=== PATIENT | female | born 1980 | race Caucasian/White ===

== ENCOUNTER 2019-04-17 11:18 | Emergency (ER) | payer MEDICAID ==
--- OUTSIDE RECORDS SUMMARY | 2019-04-17 11:32 | XMS REPORT | Continuity of Care Document ---
:1980 External Reference #:[id number] Author Name Ulysses Bautista MD (transmitted by agent of provider Francine Echeverria) Address [address] [place] [id number] Problems Inactive Problems Provider Date Verruca plantaris Onset: 11/18/2018 Inactive: 11/18/2018 Urgent desire to urinate Onset: 11/18/2018 Inactive: 11/18/2018 Urinary tract infectious disease Onset: 11/18/2018 Inactive: 11/18/2018 Social History Type Date Description Comments Sex Unknown Allergies, Adverse Reactions, Alerts Description No Known Drug Allergies Medications Active Medications SIG Qnty Indications Ordering Provider Date Cephalexin 1 tab by mouth 20caps Ulysses Bautista MD 04/16/2019 500mg Capsules twice a day History Medications No Active Medications Unknown 04/16/2019 - 04/16/2019 Wellbutrin XL 1 daily Oral 30tabs ANTONIO Noel 01/12/2019 - 150mg 03/22/2019 Tablets ER 24HR Fluoxetine HCL 1 tab daily 30caps F41.9 ANTONIO Noel 01/11/2019 - 10mg 03/23/2019 Capsules Hydroxyzine HCL 1-2 as needed 60tabs F41.9 ANTONIO Noel 01/11/2019 - 50mg every 6 hrs for 03/23/2019 Tablets anxiety Macrobid 1 twice daily 10caps Unknown 11/18/2018 - 100mg Capsules Oral 11/23/2018 Pyridium 1 three times 6tabs Unknown 11/18/2018 - 200mg Tablets daily Oral 11/20/2018 Immunizations CPT Code Status Date Vaccine Lot # [id number] Given 02/26/2019 Flu < 65 years [id number] 22076 Given 06/23/2015 Influenza Virus Vaccine, Quadrivalent, Split, Im Use 0.25ML 78367 Given 06/23/2015 Flu High Dose 75283 Given 06/23/2015 Flumist 55760 Given 06/23/2015 Influenza Virus Vaccine, Quadrivalent, Split, Im Use 0.25ML 20444 Given 06/23/2015 Influenza Virus Vaccine, Quadrivalent, Split, Im Use 0.25ML 20432 Given 06/23/2015 Influenza Virus Vaccine, Quadrivalent, Split, Preservative Free 80963 Given 06/23/2015 Flu < 65 years 65309 Given 03/14/2014 Flu High Dose 50564 Given 03/14/2014 Flumist 83133 Given 03/14/2014 Influenza Virus Vaccine, Quadrivalent, Split, Preservative Free 68644 Given 03/14/2014 Flu < 65 years 03541 Given 03/14/2014 Influenza Virus Vaccine, Quadrivalent, Split Virus, Im Use 0.5ML 17693 Given 01/14/2013 Influenza Virus Vaccine, Quadrivalent, Split, Im Use 0.25ML 41144 Given 01/14/2013 Influenza Virus Vaccine, Quadrivalent, Split, Im Use 0.25ML 79590 Given 01/14/2013 Influenza Virus Vaccine, Quadrivalent, Split, Im Use 0.25ML 28455 Given 01/14/2013 Influenza Virus Vaccine, Quadrivalent, Split, Im Use 0.25ML 21118 Given 01/14/2013 Flu < 65 years 38820 Given 01/14/2013 Influenza Virus Vaccine, Quadrivalent, Split, Preservative Free 20997 Given 01/14/2013 Flumist 23061 Given 01/14/2013 Flu High Dose 24026 Given 01/14/2013 Influenza Virus Vaccine Split Virus Intramuscular Use 0.5ML 99551 Given 12/12/2011 Tdap - Boostrix/Adacel 19879 Given 03/24/2009 Influenza Virus Vaccine, Quadrivalent, Split, Im Use 0.25ML 72832 Given 03/24/2009 H1N1 Immunization Admin (Intramuscular,Intranasal) Inc Counseling [id number] Refused 09/09/2017 Influenza Virus Vaccine, Quadrivalent, Split, Im Use 0.25ML Vital Signs Date Vital Result Comment 04/16/2019 12:03pm Height 65 inches 5'5" Weight 153.00 lb Heart Rate 95 /min Body Temperature 100.1 F O2 % BldC Oximetry 99 % BMI (Body Mass Index) 25.5 kg/m2 Results Test Acquired Date Facility Test Result H/L Range Note CFM Rapid Flu 04/16/2019 [facility] Influenza A Rapid Pos A & B ( )- - Test Influenza B Rapid Test Neg Laboratory test 04/16/2019 [facility] Rapid Strep A Positive finding ( )- - Laboratory test 02/26/2019 [facility] CFM Rapid Strep A neg finding ( )- - CFM Rapid Flu A & B 02/26/2019 [facility] Influenza A Rapid neg ( )- - Test Influenza B Rapid Test neg Laboratory test 02/26/2019 [facility] Rapid Strep Negative Negative [address] A Request [place] [id number] [phone] Laboratory test 02/26/2019 [facility] CF Rapid negative finding ( )- - Strep A Bilirubin-Ua 11/18/2018 N2N/CCD Import Bilirubin-U Negative Negative - a Negative Qual Blood-Ua 11/18/2018 N2N/CCD Import Blood-Ua Negative Negative - Negative Qual Glucose-Ua 11/18/2018 N2N/CCD Import Glucose-Ua Negative Negative - Negative Qual Ketones-Ua 11/18/2018 N2N/CCD Import Ketones-Ua Negative Negative - Negative Qual Leuk Est-Ua 11/18/2018 N2N/CCD Import Leuk Est-Ua TR High Negative - Negative Qual Nitrite-Ua 11/18/2018 N2N/CCD Import Nitrite-Ua Negative Negative - Negative Qual PH-Ua 11/18/2018 N2N/CCD Import PH-Ua 7.0 _ 5 - 7 Protein-Ua 11/18/2018 N2N/CCD Import Protein-Ua Negative SP Grav-Ua 11/18/2018 N2N/CCD Import SP Grav-Ua 1.010 _ 1.003 - 1.030 Urobilinogen-Ua 11/18/2018 N2N/CCD Import Urobilinoge neg Negative - n-Ua Negative 1 Corporate Recruiter: [id number] Suboptimal collection technique may reduce sensitivity of test. Refer to the [facility] Test Catalog for collection information: [email or web address] As with all diagnostic procedures, the laboratory results obtained should be used in conjunction with other clinical information available to the physician, including confirmation by another method, as applicable. Procedures Date Code Description Status 04/16/2019 59303 Brief Emotional/Behav Assessment W/ Scoring Doc Per Completed Standard Inst 11/18/2018 22181 Destruction Benign Lesions Other Than Skin Tags Or Cutan Completed Vascular Medical Devices Description No Information Available Encounters Type Date Location Provider Dx Diagnosis Office Visit 02/26/2019 [facility] Tish Norman, R68.83 Chills ( without 11:00a fever) J02.9 Acute pharyngitis, unspecified Z63.79 Other stressful life events affecting family and household Z23 Encounter for immunization Office Visit 01/11/2019 1:45p [facility] Lidia Joytama, HEALTH INSURANCE AGENT F41.9 Anxiety disorder, unspecified Z63.79 Other stressful life events affecting family and household Assessments Date Code Description Provider 04/16/2019 J02.9 Acute pharyngitis, unspecified Ulysses Bautista MD 04/16/2019 R50.9 Fever, unspecified Ulysses Bautista MD 02/26/2019 R68.83 Chills (without fever) Tish Norman, 02/26/2019 J02.9 Acute pharyngitis, unspecified Tish Norman, DO 02/26/2019 Z63.79 Other stressful life events affecting family Tish Norman, and household 02/26/2019 Z23 Encounter for immunization Tish Norman, 01/11/2019 F41.9 Anxiety disorder, unspecified Lidia Joytama, HEALTH INSURANCE AGENT 01/11/2019 Z63.79 Other stressful life events affecting family Lidia Aittama, HEALTH INSURANCE AGENT and household Plan of Treatment 04/16/2019 - Ulysses Bautista MDJ02.9 Acute pharyngitis, begldlsonnyL76.9 Fever, unspecifiedAllNew Medication:Cephalexin 500 mg - 1 tab by mouth twice a dayNo Active Medications - Functional Status Description No Information Available Mental Status Description No Information Available Referrals Description No Information Available
--- OUTSIDE RECORDS SUMMARY | 2019-04-17 11:32 | XMS REPORT | Continuity of Care Document ---
:1980 External Reference #:[id number] Author Name Tish Norman, DO Address [address] [place] [id number] Problems Inactive Problems Provider Date Verruca plantaris Onset: 11/18/2018 Inactive: 11/18/2018 Urgent desire to urinate Onset: 11/18/2018 Inactive: 11/18/2018 Urinary tract infectious disease Onset: 11/18/2018 Inactive: 11/18/2018 Social History Type Date Description Comments Sex Unknown Allergies, Adverse Reactions, Alerts Description No Information Available Medications Active Medications SIG Qnty Indications Ordering Provider Date Wellbutrin XL 1 daily Oral 30tabs Lidia Kim [facility] 01/12/2019 150mg Tablets ER 24HR Fluoxetine HCL 1 tab daily 30caps F41.9 Lidia Aittama [facility] 01/11/2019 10mg Capsules Hydroxyzine HCL 1-2 as needed 60tabs F41.9 Lidia Joytama, [facility] 01/11/2019 50mg every 6 hrs for Tablets anxiety Xanax 1 three times 20tabs Unknown 03/12/2013 0.25mg Tablets daily prn Oral History Medications Macrobid 1 twice daily Oral 10caps Unknown 11/18/2018 - 11/23/2018 100mg Capsules Pyridium 1 three times daily 6tabs Unknown 11/18/2018 - 11/20/2018 200mg Tablets Oral Immunizations CPT Code Status Date Vaccine Lot # [id number] Given 02/26/2019 Flu < 65 years [id number] 33573 Given 06/23/2015 Influenza Virus Vaccine, Quadrivalent, Split, Im Use 0.25ML 62127 Given 06/23/2015 Flu High Dose 52133 Given 06/23/2015 Flumist 61663 Given 06/23/2015 Influenza Virus Vaccine, Quadrivalent, Split, Im Use 0.25ML 53233 Given 06/23/2015 Influenza Virus Vaccine, Quadrivalent, Split, Im Use 0.25ML 74200 Given 06/23/2015 Influenza Virus Vaccine, Quadrivalent, Split, Preservative Free 97214 Given 06/23/2015 Flu < 65 years 42692 Given 03/14/2014 Flu High Dose 29415 Given 03/14/2014 Flumist 55052 Given 03/14/2014 Influenza Virus Vaccine, Quadrivalent, Split, Preservative Free 96656 Given 03/14/2014 Flu < 65 years 95680 Given 03/14/2014 Influenza Virus Vaccine, Quadrivalent, Split Virus, Im Use 0.5ML 53369 Given 01/14/2013 Influenza Virus Vaccine, Quadrivalent, Split, Im Use 0.25ML 50943 Given 01/14/2013 Influenza Virus Vaccine, Quadrivalent, Split, Im Use 0.25ML 35929 Given 01/14/2013 Influenza Virus Vaccine, Quadrivalent, Split, Im Use 0.25ML 91093 Given 01/14/2013 Influenza Virus Vaccine, Quadrivalent, Split, Im Use 0.25ML 56684 Given 01/14/2013 Flu < 65 years 16792 Given 01/14/2013 Influenza Virus Vaccine, Quadrivalent, Split, Preservative Free 54812 Given 01/14/2013 Flumist 84090 Given 01/14/2013 Flu High Dose 81437 Given 01/14/2013 Influenza Virus Vaccine Split Virus Intramuscular Use 0.5ML 56593 Given 12/12/2011 Tdap - Boostrix/Adacel 40958 Given 03/24/2009 Influenza Virus Vaccine, Quadrivalent, Split, Im Use 0.25ML 08067 Given 03/24/2009 H1N1 Immunization Admin (Intramuscular,Intranasal) Inc Counseling 09545 Refused 09/09/2017 Influenza Virus Vaccine, Quadrivalent, Split, Im Use 0.25ML Vital Signs Date Vital Result Comment 02/26/2019 10:55am BP Systolic 104 mmHg BP Diastolic 74 mmHg Heart Rate 88 /min Body Temperature 98.5 F O2 % BldC Oximetry 98 % 01/11/2019 1:51pm BP Systolic 122 mmHg BP Diastolic 60 mmHg Heart Rate 68 /min Body Temperature 98.0 F O2 % BldC Oximetry 99 % Results Test Acquired Date Facility Test Result H/L Range Note Laboratory test 02/26/2019 [facility] CF Rapid Strep neg finding ( )- - A CFM Rapid Flu A & 02/26/2019 [facility] Influenza A neg B ( )- - Rapid Test Influenza B Rapid Test neg Laboratory test 02/26/2019 [facility] Rapid Strep Negative Negative [address] [place] [address] [phone] Laboratory test 02/26/2019 [facility] CF Rapid negative finding ( )- - [...] Urobilinoge neg Negative - n-Ua Negative 1 Tree Shear Operator: [id number] Suboptimal collection technique may reduce sensitivity of test. Refer to the [facility] Test Catalog for collection information: [email or web address] As with all diagnostic procedures, the laboratory results obtained should be used in conjunction with other clinical information available to the physician, including confirmation by another method, as applicable. Procedures Date Code Description Status 11/18/2018 14861 Destruction Benign Lesions Other Than Skin Tags Or Cutan Completed Vascular 09/09/2018 86297 Destruction Benign Lesions Other Than Skin Tags Or Cutan Completed Vascular Medical Devices Description No Information Available Encounters Type Date Location Provider Dx Diagnosis Office Visit 02/26/2019 [facility] Lauri Norman DO R68.83 Chills ( without 11:00a fever) J02.9 Acute pharyngitis, unspecified Z63.79 Other stressful life events affecting family and household Office Visit 01/11/2019 1:45p [facility] Lidia Kim UPSCALE SECURITY OFFICER F41.9 Anxiety disorder, unspecified Z63.79 Other stressful life events affecting family and household Assessments Date Code Description Provider 02/26/2019 R68.83 Chills (without fever) Tish Norman, DO 02/26/2019 J02.9 Acute pharyngitis, unspecified Tish Norman, DO 02/26/2019 Z63.79 Other stressful life events affecting family Tish Norman, DO and household 01/11/2019 F41.9 Anxiety disorder, unspecified Lidia Joyjuanbao, UPSCALE SECURITY OFFICER 01/11/2019 Z63.79 Other stressful life events affecting family Lidia Hamiltonjuanbao, UPSCALE SECURITY OFFICER and household Plan of Treatment 02/26/2019 - Tish Norman, DOR68.83 Chills (without fever)Comments:Flu swab negRapid strep neg but given constillation of symptoms and exposure, did send for cultureSuspect viral illnessDiscussed supportive careOk to wait until Friday to go back to work If things change, worsen or new symptoms, let me knowJ02.9 Acute pharyngitis, unspecifiedComments:Minimal sore throat but given symptoms and exposure, rapid strep doneZ63.79 Other stressful life events affecting family and householdComments:Supportive sheilaShe is doing well overallFinding who is supportive and who is notDoing her best with self careHere is she needs us Functional Status Description No Information Available Mental Status Description No Information Available Referrals Description No Information Available
--- OUTSIDE RECORDS SUMMARY | 2019-04-17 11:32 | XMS REPORT | Continuity of Care Document ---
:1980 External Reference #:[id number] Author Name Tish Norman, DO Address [address] [place] [id number] Problems Inactive Problems Provider Date Verruca plantaris Onset: 11/18/2018 Inactive: 11/18/2018 Urgent desire to urinate Onset: 11/18/2018 Inactive: 11/18/2018 Urinary tract infectious disease Onset: 11/18/2018 Inactive: 11/18/2018 Social History Type Date Description Comments Sex Unknown Allergies, Adverse Reactions, Alerts Description No Information Available Medications Active Medications SIG Qnty Indications Ordering Provider Date Wellbutrin XL 1 daily Oral 30tabs Lidia Kim [facility] 01/12/2019 150mg Tablets ER 24HR Fluoxetine HCL 1 tab daily 30caps F41.9 Lidia Aittama [facility] 01/11/2019 10mg Capsules Hydroxyzine HCL 1-2 as needed 60tabs F41.9 Lidia Joytama, [facility] 01/11/2019 50mg every 6 hrs for Tablets anxiety Xanax 1 three times 20tabs Unknown 03/12/2013 0.25mg Tablets daily prn Oral History Medications Macrobid 1 twice daily Oral 10caps Unknown 11/18/2018 - 11/23/2018 100mg Capsules Pyridium 1 three times daily 6tabs Unknown 11/18/2018 - 11/20/2018 200mg Tablets Oral Immunizations CPT Code Status Date Vaccine Lot # [id number] Given 02/26/2019 Flu < 65 years [id number] 51704 Given 06/23/2015 Influenza Virus Vaccine, Quadrivalent, Split, Im Use 0.25ML 96631 Given 06/23/2015 Flu High Dose 18426 Given 06/23/2015 Flumist 11786 Given 06/23/2015 Influenza Virus Vaccine, Quadrivalent, Split, Im Use 0.25ML 03235 Given 06/23/2015 Influenza Virus Vaccine, Quadrivalent, Split, Im Use 0.25ML 34033 Given 06/23/2015 Influenza Virus Vaccine, Quadrivalent, Split, Preservative Free 15011 Given 06/23/2015 Flu < 65 years 15281 Given 03/14/2014 Flu High Dose 09677 Given 03/14/2014 Flumist 43696 Given 03/14/2014 Influenza Virus Vaccine, Quadrivalent, Split, Preservative Free 35297 Given 03/14/2014 Flu < 65 years 62104 Given 03/14/2014 Influenza Virus Vaccine, Quadrivalent, Split Virus, Im Use 0.5ML 46187 Given 01/14/2013 Influenza Virus Vaccine, Quadrivalent, Split, Im Use 0.25ML 97167 Given 01/14/2013 Influenza Virus Vaccine, Quadrivalent, Split, Im Use 0.25ML 07880 Given 01/14/2013 Influenza Virus Vaccine, Quadrivalent, Split, Im Use 0.25ML 42397 Given 01/14/2013 Influenza Virus Vaccine, Quadrivalent, Split, Im Use 0.25ML 32770 Given 01/14/2013 Flu < 65 years 72136 Given 01/14/2013 Influenza Virus Vaccine, Quadrivalent, Split, Preservative Free 01976 Given 01/14/2013 Flumist 81392 Given 01/14/2013 Flu High Dose 79999 Given 01/14/2013 Influenza Virus Vaccine Split Virus Intramuscular Use 0.5ML 09269 Given 12/12/2011 Tdap - Boostrix/Adacel 61013 Given 03/24/2009 Influenza Virus Vaccine, Quadrivalent, Split, Im Use 0.25ML 42787 Given 03/24/2009 H1N1 Immunization Admin (Intramuscular,Intranasal) Inc Counseling 79009 Refused 09/09/2017 Influenza Virus Vaccine, Quadrivalent, Split, [...] Result H/L Range Note Laboratory test 02/26/2019 [facility] CF Rapid Strep neg finding ( )- - A CFM Rapid Flu A & 02/26/2019 [facility] Influenza A neg B ( )- - Rapid Test Influenza B Rapid Test neg Laboratory test 02/26/2019 [facility] Rapid Strep Negative Negative [address] [place] [address] [phone] Laboratory test 02/26/2019 [facility] CF Rapid negative finding ( )- - [...] Urobilinoge neg Negative - n-Ua Negative 1 Handle Maker: [id number] Suboptimal collection technique may reduce sensitivity of test. Refer to the [facility] Test Catalog for collection information: [email or web address] As with all diagnostic procedures, the laboratory results obtained should be used in conjunction with other clinical information available to the physician, including confirmation by another method, as applicable. Procedures Date Code Description Status 11/18/2018 78397 Destruction Benign Lesions Other Than Skin Tags Or Cutan Completed Vascular 09/09/2018 43182 Destruction Benign Lesions Other Than Skin Tags Or Cutan Completed Vascular Medical Devices Description No Information Available Encounters Type Date Location Provider Dx Diagnosis Office Visit 02/26/2019 [facility] Lauri Norman DO R68.83 Chills ( without 11:00a fever) J02.9 Acute pharyngitis, unspecified Z63.79 Other stressful life events affecting family and household Office Visit 01/11/2019 1:45p [facility] Lidia Kim ANTONIO F41.9 Anxiety disorder, unspecified Z63.79 Other stressful life events affecting family and household Assessments Date Code Description Provider 02/26/2019 R68.83 Chills (without fever) Tish Norman, DO 02/26/2019 J02.9 Acute pharyngitis, unspecified Tish Norman, DO 02/26/2019 Z63.79 Other stressful life events affecting family Tish Norman, DO and household 01/11/2019 F41.9 Anxiety disorder, unspecified Lidia Joyjuanbao, COUNTERINTELLIGENCE ANALYST 01/11/2019 Z63.79 Other stressful life events affecting family Lidia Hamiltonjuanbao, COUNTERINTELLIGENCE ANALYST and household Plan of Treatment 02/26/2019 - [...]
[2019-04-17] MEDS ORDERED: cefTRIAXone(*) 2 GM in NS 0.9% 100 ML* 100 ML IV ONE (12:12)
[2019-04-17] MEDS ORDERED: NS 0.9% 1000 ML** 1,000 ML IV ONE (12:17)
[2019-04-17] MEDS ORDERED: NS 0.9% 100 ML* 100 ML ONE (12:39)
[2019-04-17 12:40] LABS: ABS Eosinophils 0.1 10^3/ul (0-0.6); ABS Lymphocytes 0.9 10^3/ul (1.0-4.8); ABS Monocytes 0.8 10^3/ul (0-0.8); ABS Neutrophils 4.8 10^3/ul (1.5-7.7); Eosinophil % 1.1 %; Hematocrit 37 % (35-47); Hemoglobin 12.8 g/dL (12.0-16.0); Lymphocyte % 13.5 %; Mean Corpuscular HGB Conc 34 g/dL (31-36); Mean Corpuscular Hemoglobin 30 pg (27-31); Mean Corpuscular Volume 86 fL (80-97); Mean Platelet Volume 7.8 fL (7.4-10.4); Platelet Count 232 10^3/uL (150-450); Red Blood Count 4.33 10^6 /uL (3.70-4.87); Red Cell Distribution Width 14 % (10-15); White Blood Count 6.6 10^3/uL (3.5-10.8)
[2019-04-17 12:56] LABS: Albumin 3.8 g/dL (3.2-5.2); Albumin/Globulin Ratio 1.2 (1-3); BUN/Creatinine Ratio 8.9 (8-20); C Reactive Protein 153.79 mg/L (<8.01); Calcium 8.9 mg/dL (8.6-10.3); EGFR African American 145.1 (>60); EGFR Non-African American 119.9 (>60); Globulin 3.3 g/dL (2-4); Potassium 3.3 mmol/L (3.5-5.0); Total Bilirubin 0.5 mg/dL (0.2-1.0); Total Protein 7.1 g/dL (6.4-8.9)
[2019-04-17 13:20] LABS: Rapid Strep Molecular POSITIVE (Negative)
[2019-04-17 13:26] LABS: Influenza A Molecular NEGATIVE (Negative); Influenza B Molecular NEGATIVE (Negative)
--- NOTE | 2019-04-17 14:38 | ED ---
Skin Complaint - HPI Summary HPI Summary: This patient is a 38-year-old female with no significant past medical history presenting to the ED with a facial cellulitis. She states a few days ago, she began to have some sweats and chills as well as bilateral neck pain. She was seen by her PCP and tested positive for strep and tested positive for flu. She had a small amount of erythema to the forehead as well at that time. She was seen yesterday and given Keflex 500 mg twice a day 10 days for the cellulitis as well as the strap. However, she denies any body aches, nausea, vomiting or sore throat. She states she has been feeling ill, however not typical influenza -like symptoms. She does have a mild cough and has rhinorrhea. She typically takes no medications. She states today she awoke with left upper eye swelling which appears to be of an allergic reaction. She states she has had this in the past and has very sensitive skin, however when she went back to her PCP today, she was referred here to the ED for further evaluation. She denies any pain to the eye. Denies any visual changes or disturbances. Able to move about the eye without discomfort. - History of Current Complaint Chief Complaint: EDGeneral Time Seen by Provider: 04/17/19 12:01 Stated Complaint: POSS CELLULITIS PER PT Hx Obtained From: Patient Onset/Duration: Started Days Ago Skin Exposure Onset/Duration: Hours Ago, Days Ago Timing: Constant Onset Severity: Mild Current Severity: Mild Pain Intensity: 0 Pain Scale Used: 0-10 Numeric Skin Location: Other: - forehead, some to the scalp Aggravating Symptom(s): Nothing Alleviating Symptom(s): Nothing - Allergy/Home Medications Allergies/Adverse Reactions: Allergies Allergy/AdvReac Type Severity Reaction Status Date / Time No Known Allergies Allergy Verified 04/17/19 11:22 PMH/Surg Hx/FS Hx/Imm Hx Previously Healthy: Yes - Immunization History Hx Pertussis Vaccination: No Immunizations Up to Date: Yes Infectious Disease History: No Infectious Disease History: Denies: Traveled Outside the [place] in Last 30 Days - Social History Occupation: Unemployed Lives: With Family Alcohol Use: Rare Hx Substance Use: No Substance Use Type: Reports: None Smoking Status (MU): Never Smoked Tobacco Review of Systems Negative: Fever, Chills, Fatigue, Skin Diaphoresis Negative: Palpitations, Chest Pain Negative: Shortness Of Breath, Cough Genitourinary: Negative Positive: no symptoms reported, see HPI Negative: Arthralgia, Myalgia Positive: Other - cellulitis to the forehead. Negative: Rash, Bruising Neurological: Negative All Other Systems Reviewed And Are Negative: Yes Physical Exam Triage Information Reviewed: Yes Vital Signs On Initial Exam: Initial Vitals Temp Pulse Resp BP Pulse Ox 99.8 F 93 16 115/83 99 04/17/19 11:19 04/17/19 11:19 04/17/19 11:19 04/17/19 11:19 04/17/19 11:19 Vital Signs Reviewed: Yes Appearance: Positive: Well-Appearing, Well-Nourished Skin: Positive: Warm, Skin Color Reflects Adequate Perfusion, Other - erythema to the forehead, swelling to the upper eye lid without periorbital swelling or erythema Eyes: Positive: EOMI, LINDEN, Conjunctiva Clear Neck: Positive: Supple, No Lymphadenopathy Respiratory/Lung Sounds: Positive: Clear to Auscultation, Breath Sounds Present Cardiovascular: Positive: RRR, Pulses are Symmetrical in both Upper and Lower Extremities Musculoskeletal: Positive: Normal, Strength/ROM Intact Neurological: Positive: Speech Normal Psychiatric: Positive: Normal, Affect/Mood Appropriate AVPU Assessment: Alert Procedures - Sedation Patient Received Moderate/Deep Sedation with Procedure: No Diagnostics - Vital Signs Vital Signs Temp Pulse Resp BP Pulse Ox 04/17/19 13:00 87 99 04/17/19 12:58 82 116/72 99 04/17/19 12:28 116/81 04/17/19 11:19 99.8 F 93 16 115/83 99 - Laboratory Lab Results: Lab Results 04/17/19 04/17/19 04/17/19 Range/Units 12:33 12:33 12:33 WBC 6.6 (3.5-10.8) 10^3/uL RBC 4.33 (3.70-4.87) 10^6 /uL Hgb 12.8 (12.0-16.0) g/dL Hct 37 (35-47) % MCV 86 (80-97) fL MCH 30 (27-31) pg MCHC 34 (31-36) g/dL RDW 14 (10-15) % Plt Count 232 (150-450) 10^3/uL MPV 7.8 (7.4-10.4) fL Neut % (Auto) 72.6 % Lymph % (Auto) 13.5 % [place] % (Auto) 12.5 % Eos % (Auto) 1.1 % Baso % (Auto) 0.3 % Absolute Neuts (auto) 4.8 (1.5-7.7) 10^3/ul Absolute Lymphs (auto) 0.9 L (1.0-4.8) 10^3/ul Absolute Monos (auto) 0.8 (0-0.8) 10^3/ul Absolute Eos (auto) 0.1 (0-0.6) 10^3/ul Absolute Basos (auto) 0.0 (0-0.2) 10^3/ul Absolute Nucleated RBC 0.0 10^3/ul Nucleated RBC % 0.0 Sodium 138 (135-145) mmol/L Potassium 3.3 L (3.5-5.0) mmol/L Chloride 104 (101-111) mmol/L Carbon Dioxide 26 (22-32) mmol/L Anion Gap 8 (2-11) mmol/L BUN 5 L (6-24) mg/dL Creatinine 0.56 (0.51-0.95) mg/dL Est GFR ( Amer) 145.1 (>60) Est GFR (Non-Af Amer) 119.9 (>60) BUN/Creatinine Ratio 8.9 (8-20) Glucose 110 H (70-100) mg/dL Lactic Acid 1.4 (0.5-2.0) mmol/L Calcium 8.9 (8.6-10.3) mg/dL Total Bilirubin 0.50 (0.2-1.0) mg/dL AST 20 (13-39) U/L ALT 37 (7-52) U/L Alkaline Phosphatase 76 (34-104) U/L C-Reactive Protein 153.79 H (<8.01) mg/L Total Protein 7.1 (6.4-8.9) g/dL Albumin 3.8 (3.2-5.2) g/dL Globulin 3.3 (2-4) g/dL Albumin/Globulin Ratio 1.2 (1-3) Influenza A (Rapid) (Negative) Influenza B (Rapid) (Negative) Group A Strep Rapid (Negative) 04/17/19 04/17/19 Range/Units 13:00 13:00 WBC (3.5-10.8) 10^3/uL RBC (3.70-4.87) 10^6 /uL Hgb (12.0-16.0) g/dL Hct (35-47) % MCV (80-97) fL MCH (27-31) pg MCHC (31-36) g/dL RDW (10-15) % Plt Count (150-450) 10^3/uL MPV (7.4-10.4) fL Neut % (Auto) % Lymph % (Auto) % [place] % (Auto) % Eos % (Auto) % Baso % (Auto) % Absolute Neuts (auto) (1.5-7.7) 10^3/ul Absolute Lymphs (auto) (1.0-4.8) 10^3/ul Absolute Monos (auto) (0-0.8) 10^3/ul Absolute Eos (auto) (0-0.6) 10^3/ul Absolute Basos (auto) (0-0.2) 10^3/ul Absolute Nucleated RBC 10^3/ul Nucleated RBC % Sodium (135-145) mmol/L Potassium (3.5-5.0) mmol/L Chloride (101-111) mmol/L Carbon Dioxide (22-32) mmol/L Anion Gap (2-11) mmol/L BUN (6-24) mg/dL Creatinine (0.51-0.95) mg/dL Est GFR ( Amer) (>60) Est GFR (Non-Af Amer) (>60) BUN/Creatinine Ratio (8-20) Glucose (70-100) mg/dL Lactic Acid (0.5-2.0) mmol/L Calcium (8.6-10.3) mg/dL Total Bilirubin (0.2-1.0) mg/dL AST (13-39) U/L ALT (7-52) U/L Alkaline Phosphatase (34-104) U/L C-Reactive Protein (<8.01) mg/L Total Protein (6.4-8.9) g/dL Albumin (3.2-5.2) g/dL Globulin (2-4) g/dL Albumin/Globulin Ratio (1-3) Influenza A (Rapid) Negative (Negative) Influenza B (Rapid) Negative (Negative) Group A Strep Rapid Positive A (Negative) Result Diagrams: 04/17/19 12:33 04/17/19 12:33 Lab Statement: Any lab studies that have been ordered have been reviewed, and results considered in the medical decision making process. Course/Dx - Course Course Of Treatment: Patient's evaluated for possible worsening facial cellulitis. There is a erythematous and slightly warm area to the forehead measuring approximately 4 cm in width and 6 cm in length covering almost the entire forehead. She does have slight swelling of the upper eyelid without swelling to the lower eyelid or any swelling around the eye otherwise to suggest an orbital cellulitis. Patient has no evidence of ophthalmoplegia, edema, decreased visual acuity, proptosis, double vision, decreased vision, afferent pupillary defect pain or limitation with eye movements. Tracking well. EOMI/PERRLA. Labs obtained which show a normal white count with an elevated CRP. Patient is able to flex and extend about the neck without tenderness to the posterior cervical spine. Patient was given ceftriaxone and blood cultures were collected. These are pending. Patient will start taking keflex four times daily tomorrow. She will have close f/u and concerning symptoms were explained to the patient in depth. She understands and is OK for DC at this time. She is positive for strep, negative for flu. VS stable. - Differential Diagnoses - Skin Complaint Differential Diagnoses: Other - strep, flu, facial cellulitis, preseptal cellulitis, viral illness - Diagnoses Provider Diagnoses: Cellulitis Discharge ED - Sign-Out/Discharge Documenting (check all that apply): Patient Departure - Discharge Plan Condition: Stable Disposition: HOME Prescriptions: Cephalexin CAP* [Keflex CAP*] 500 mg PO QID #8 cap MDD 4 Patient Education Materials: Cellulitis (ED) Referrals: Ulysses Bautista MD [Primary Care Provider] - Additional Instructions: As discussed, take dose this evening before bed Start four times daily Keflex tomorrow If you develop any worsening symptoms, including fevers, pain behind the eye, or worsening swelling to the eye - please return to the ED - Billing Disposition and Condition Condition: STABLE Disposition: Home Images - Images Head: 1 - erythema and warmth - cellulitis 2 - small amount of edema - no erythema or periorbital swelling - Attestation Statements Provider Attestation: I was available for consultation for this patient. I did not evaluate the patient or participate in any medical decision making or disposition decisions unless I am specifically named in the chart as having consulted on the patient. If I have consulted on the patient, please see my own ED note on the patient encounter. Golden Angel MD
[2019-04-17 14:45] VITALS: BP 117/80
== END 2019-04-17 14:45 | disposition home or self-care (01) ==
LOC: ED 11:18
DX: L03.211 Cellulitis of face (principal); M54.2 Cervicalgia
CPT/HCPCS: 36415; 80053; 83605; 85025; 86140; 87040; 87651; 96361; 96365; 99282; J0696